=== PATIENT | male | born 1975 | race Caucasian/White ===

== ENCOUNTER 2019-01-17 11:21 | Emergency (ER) | payer OTHER ==
[~2019-01-17] VITALS: Ht 182.9 cm; Wt 96.2 kg
[2019-01-17] MEDS ORDERED: COZAAR25 MG (11:30)
[2019-01-17] MEDS ORDERED: SIMVASTATIN10 MG (11:31)
[2019-01-17] MEDS ORDERED: METFORMIN HCL1000 M1 (11:31)
== END 2019-01-17 16:26 | disposition home or self-care (01) ==
LOC: ER 11:21
DX: N23 Unspecified renal colic (principal); M54.5 Low back pain

== ENCOUNTER 2019-01-17 16:40 | Outpatient (CLI) | payer OTHER ==
[~2019-01-17 16:40] MED LIST: COZAAR25 MG; METFORMIN HCL1000 M1; SIMVASTATIN10 MG
== END 2019-01-17 17:09 | disposition home or self-care (01) ==
LOC: RAD 16:40
DX: N23 Unspecified renal colic (principal)